=== PATIENT | male | born 1975 | race American Indian/Alaskan Native ===

== ENCOUNTER 2021-02-26 01:27 | Emergency (ER) | payer OTHER ==
[2021-02-26] MEDS ORDERED: HYDROcodone/ACETAMINOPHEN 5-325 MG TAB PO ONE (02:41)
[2021-02-26] MEDS ORDERED: IBUPROFEN 800 MG TAB PO ONE (02:41)
--- NOTE | 2021-02-26 02:48 | XRay Report ---
LEFT FOREARM, 2 VIEWS INDICATION / CLINICAL INFORMATION: injury. COMPARISON: None available. FINDINGS: There is a comminuted oblique fracture through the mid diaphysis of the radius. Distal fracture segme nt is displaced laterally. There is mildly displaced noncomminuted transverse fracture through the mid diaphysis of the ulna. IMPRESSION: There are displaced comminuted fractures through the mid shafts of the radius and ulna Signer Name: Radha Kebede MD Signed: 02/26/2021 2:44 AM Workstation Name: [id number]
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
[2021-02-26 03:58] VITALS: BP 117/68
== END 2021-02-26 03:53 | disposition home or self-care (01) ==
LOC: ED 01:27
DX: S52.322A Displaced transverse fracture of shaft of left radius, initial encounter for closed fracture (principal); S52.222A Displaced transverse fracture of shaft of left ulna, initial encounter for closed fracture; F17.200 Nicotine dependence, unspecified, uncomplicated; Z72.89 Other problems related to lifestyle; Z79.899 Other long term (current) drug therapy; W22.8XXA Striking against or struck by other objects, initial encounter; Y93.89 Activity, other specified; Y92.89 Other specified places as the place of occurrence of the external cause; Y99.8 Other external cause status
CPT/HCPCS: 99283